=== PATIENT | female | born 1995 | race Two or more races ===

== ENCOUNTER → 2019-03-06 | Outpatient (CLI) | payer SELFPAY ==
--- NOTE | 2019-03-06 14:53 | RADIOLOGY REPORT (SQ) ---
EXAM DESCRIPTION: U/S OB 14+ TRNABD 1GES W/O DOP COMPLETED DATE/TIME: 03/06/2019 2:44 pm REASON FOR STUDY: Z34.82 ENCOUNTER FOR SUPRVSN OF NORMAL , SECOND TRIMESTER Z34.82 ENCOUNT ER FOR SUPRVSN OF NORMAL , SECOND TRI COMPARISON: None. TECHNIQUE: Static and Dynamic grayscale imaging performed of gravid uterus using transabdominal appr oach. Additional selected color Doppler and spectral images recorded. All stored on PACS. LIMITATIONS: None. FINDINGS: FETUSES SEEN:1 EGA: 28 weeks 0 days Calculated using BPD,FL,HC,AC documented on images. No discrepancy with clinica l dates. DEBBIE: 05/29/2019 EFW: 1111 g grams PERCENTILE: 61st percentile CRESENCIO: 18.1 cm PLACENTA: Anterior grade 1 PRESENTATION: Cephalic. ANATOMY: HEART RATE: 150 beats per minute. FOUR CHAMBER HEART: Visualized. THREE VESSEL CORD: Yes. CORD INSERTION: Visualized. KIDNEYS AND BLADDER: Visualized. Appear normal. STOMACH: Visualized. Appears normal. SPINE: Normal as visualized. BRAIN AND LATERAL VENTRICLES: Visualized. Appear normal. OTHER: No other significant finding. MATERNAL ADNEXA: Maternal ovaries not visualized. CERVICAL LENGTH: 2.3 cm Closed. OTHER: No other significant finding. IMPRESSION: LIVING INTRAUTERINE . ESTIMATED GESTATIONAL AGE 28 weeks 0 days NO VISUALIZED ANOMALIES. Trimester of : Third trimester - 28 weeks to delivery. TECHNICAL DOCUMENTATION: JOB ID: [id number] [employer]- All Rights Reserved Reading location - IP/workstation name: [email or web address]
== END ==
LOC: RAD 13:56
PROVIDERS: ATTEND Midwife
DX: Z34.83 Encounter for supervision of other normal pregnancy, third trimester (principal)
CPT/HCPCS: 76805

== ENCOUNTER 2019-04-05 23:00 | Outpatient (CLI) | payer SELFPAY ==
[2019-04-05 23:46] LABS: APPEARANCE,URINE CLEAR; BILIRUBIN,URINE NEGATIVE (NEGATIVE); COLOR,URINE STRAW; GLUCOSE, URINE NEGATIVE (NEGATIVE); KETONES,URINE NEGATIVE (NEGATIVE); LEUKOCYTE ESTERASE,URINE NEGATIVE (NEGATIVE); NITRITE,URINE NEGATIVE (NEGATIVE); PROTEIN,URINE NEGATIVE (NEGATIVE); URINE SPECIFIC GRAVITY 1.003; UROBILINOGEN,URINE NEGATIVE mg/dL (<2.0)
[2019-04-06 00:06] LABS: URINE BARBITURATES SCREEN NEGATIVE; URINE BENZODIAZEPINES SCREEN NEGATIVE; URINE COCAINE SCREEN NEGATIVE; URINE MARIJUANA (THC) SCREEN NEGATIVE; URINE METHADONE SCREEN NEGATIVE; URINE PHENCYCLIDINE SCREEN NEGATIVE
[2019-04-06 00:07] LABS: URINE AMPHETAMINES SCREEN NEGATIVE
[2019-04-06 00:12] LABS: BACTERIA (WET MOUNT) 3+ BACTERIA SEEN; EPITHELIALS (WET MOUNT) 3+ EPITHELIALS SEEN; RBCS (WET MOUNT) 2+ RBCS SEEN; T.VAGINALIS (WET MOUNT) NO TRICHOMONAS SEEN; WBCS (WET MOUNT) 1+ WBCS SEEN; YEAST (WET MOUNT) NO YEAST SEEN
[2019-04-06] MEDS ORDERED: ACETAMINOPHEN 325 MG TABLET ONE (00:28)
[2019-04-06] MEDS ORDERED: ONDANSETRON HCL 8 MG TABLET PO ONE (00:28)
[2019-04-06] MEDS ORDERED: ACETAMINOPHEN 325 MG TABLET PO ONE (00:28)
[2019-04-06] MEDS ORDERED: ONDANSETRON HCL 8 MG TABLET ONE (00:28)
--- NOTE | 2019-04-06 00:41 | RADIOLOGY REPORT (SQ) ---
EXAM DESCRIPTION: US LIMITED COMPLETED DATE/TME: 04/05/2019 23:42 CLINICAL HISTORY: 24 years Female, cervical length and cresencio . Leaking fluid. Contracted. COMPARISON: 03/06/2019 TECHNIQUE: Limited third trimester obstetrical ultrasound obtained portably sonographic parameters. FINDINGS: CRESENCIO: 13.7 cm Placenta: Anterior Cervical length: 3.0 cm and closed presentation: Vertex heart rate: 140 bpm. IMPRESSION: 1. Single live intrauterine with heart rate of 140 bpm.
--- NOTE | 2019-04-06 02:08 | Non Stress Test Report ---
Non Stress Test Datetime Report Generated by CPN: 04/06/2019 02:07 DEMOGRAPHIC Test Number: 1 EGA NST: 32.2 INDICATION Indication for Study: Ordered by Provider VITAL SIGNS Temperature - NST: 99.0 Pulse - NST: 88 RESP - NST: 16 NBPSYS NST: 117 NBPDIA NST: 68 MONITORING Monitor Explained: Monitor Explained; Test Explained; Patient Verbalized Understanding Time on Monitor: 04/06/2019 00:40 Time off Monitor: 04/06/2019 01:01 NST Duration: 21 NST INTERVENTIONS NST Interventions: PO Hydration Physician Notified NST: Younger BABY A: [id number] BABY A Movement : Present Contraction Frequency : ui FHR Baseline : 140 Accelerations : 15X15 Decelerations : None Variability : Moderate 6-25bpm NST Review: Meets Criteria for Reactive NST NST Review and Verified By : Carmen Arana RN NST Results: Reactive NST REPORT Report Trigger: Send Report
== END 2019-04-06 01:28 | disposition home or self-care (01) ==
LOC: LC 23:00
PROVIDERS: ATTEND Obstetrics & Gynecology
PROC: 4A1HXCZ Monitoring of Products of Conception, Cardiac Rate, External Approach (ICD-10-PCS; principal; 2019-04-05)
DX: O47.03 False labor before 37 completed weeks of gestation, third trimester (principal); O26.893 Other specified pregnancy related conditions, third trimester; R51 Headache; Z3A.32 32 weeks gestation of pregnancy
CPT/HCPCS: 59025; 87210; 81001; 87081; 80307; 84112; 76815; S0119

== ENCOUNTER 2019-05-28 14:57 | Outpatient (CLI) | payer SELFPAY ==
[2019-05-28 15:55] LABS: APPEARANCE,URINE CLEAR; BILIRUBIN,URINE NEGATIVE (NEGATIVE); COLOR,URINE STRAW; GLUCOSE, URINE NEGATIVE (NEGATIVE); KETONES,URINE NEGATIVE (NEGATIVE); LEUKOCYTE ESTERASE,URINE NEGATIVE (NEGATIVE); NITRITE,URINE NEGATIVE (NEGATIVE); PROTEIN,URINE NEGATIVE (NEGATIVE); URINE SPECIFIC GRAVITY 1.004; UROBILINOGEN,URINE NEGATIVE mg/dL (<2.0)
[2019-05-28 16:21] LABS: URINE AMPHETAMINES SCREEN NEGATIVE; URINE BARBITURATES SCREEN NEGATIVE; URINE BENZODIAZEPINES SCREEN NEGATIVE; URINE COCAINE SCREEN NEGATIVE; URINE MARIJUANA (THC) SCREEN NEGATIVE; URINE METHADONE SCREEN NEGATIVE; URINE PHENCYCLIDINE SCREEN NEGATIVE
[2019-05-28] MEDS ORDERED: ACETAMINOPHEN 325 MG TABLET PO ONE (18:11)
[2019-05-28] MEDS ORDERED: ACETAMINOPHEN 325 MG TABLET ONE (18:37)
[2019-05-28] MEDS ORDERED: OXYTOCIN 10 UNIT/ML VIAL ONE (21:14)
[2019-05-28] MEDS ORDERED: MISOPROSTOL 0.2 MG TABLET ONE (21:14)
[2019-05-28] MEDS ORDERED: OXYTOCIN/NORMAL SALINE 20 UNIT/1,000 ML RTUINJ ONE (21:15)
[2019-05-28] MEDS ORDERED: LIDOCAINE 1% INJ-PF (10 MG/ML) 30 ML SDV ONE (21:15)
--- NOTE | 2019-05-29 | Non Stress Test Report ---
Non Stress Test Datetime Report Generated by CPN: 05/29/2019 00:00 DEMOGRAPHIC EGA NST: 38.4 INDICATION Indication for Study: Other Indication for Study (NST) Other: LABOR CHECK MONITORING Monitor Explained: Monitor Explained; Test Explained; Patient Verbalized Understanding Time on Monitor: 05/28/2019 15:09 Time off Monitor: 05/28/2019 20:47 NST Duration: 338 NST INTERVENTIONS NST Interventions: PO Hydration; Reposition Patient Physician Notified NST: Dr. Aries BABY A: [id number] BABY A Movement : Present Contraction Frequency : irregular FHR Baseline : 135 Accelerations : 15X15 Decelerations : None Variability : Moderate 6-25bpm NST Review: Meets Criteria for Reactive NST NST Review and Verified By : Gregory Chase RN NST Results: Reactive NST REPORT Report Trigger: Send Report
== END 2019-05-28 20:45 | disposition home or self-care (01) ==
LOC: LC 14:57
PROVIDERS: ATTEND Obstetrics & Gynecology
PROC: 4A1HXCZ Monitoring of Products of Conception, Cardiac Rate, External Approach (ICD-10-PCS; principal; 2019-05-28)
DX: Z34.93 Encounter for supervision of normal pregnancy, unspecified, third trimester (principal)
CPT/HCPCS: 81005; 80307; 59025; J3490; J2590 ×2

== ENCOUNTER 2019-05-29 00:33 | Inpatient (IN) | payer SELFPAY ==
[2019-05-29] MEDS ORDERED: OXYTOCIN 10 UNIT/ML VIAL ONE (00:41)
[2019-05-29] MEDS ORDERED: MISOPROSTOL 0.2 MG TABLET ONE (00:41)
[2019-05-29] MEDS ORDERED: LIDOCAINE 1% INJ-PF (10 MG/ML) 30 ML SDV ONE (00:41)
[2019-05-29] MEDS ORDERED: PENICILLIN G-K 5 MILLION UNIT VIAL ONE (00:41)
[2019-05-29] MEDS ORDERED: OXYTOCIN/NORMAL SALINE 20 UNIT/1,000 ML RTUINJ ONE (00:41)
[2019-05-29] MEDS ORDERED: PENICILLIN G POTASSIUM 5,000,000 UNIT in DEXTROSE 5%-WATER 100 ML IV ONE (00:58)
[2019-05-29] MEDS ORDERED: RINGERS SOLUTION,LACTATED 1,000 ML IV ONE (00:58)
[2019-05-29 01:28] LABS: ABSOLUTE LYMPHOCYTES (AUTO) 2.4 10^3/uL (0.5-4.7); ABSOLUTE MONOCYTES (AUTO) 0.6 10^3/uL (0.1-1.4); ABSOLUTE NEUT (AUTO) 7.9 10^3/uL (1.7-8.2); BASOPHILS % (AUTO) 0.3 % (0-2); EOSINOPHILS % (AUTO) 0.4 % (0-6); HEMATOCRIT 32.6 % (36.0-47.0); HEMOGLOBIN 10.9 g/dL (12.0-15.5); LYMPHOCYTES % (AUTO) 21.8 % (13-45); MEAN CORPUSCULAR HEMOGLOBIN 28.7 pg (27.0-33.4); MEAN CORPUSCULAR HGB CONC 33.5 g/dL (32.0-36.0); MEAN CORPUSCULAR VOLUME 86 fl (80-97); PLATELET COUNT 230 10^3/uL (150-450); RED CELL DISTRIBUTION WIDTH 12.9 % (11.5-14.0); SEGMENTED NEUTROPHILS % (AUTO) 72.5 % (42-78); TOTAL CELLS COUNTED % (AUTO) 100 %
--- NOTE | 2019-05-29 02:01 | Admission Physical ---
Datetime Report Generated by CPN: 05/29/2019 02:01 CURRENT ADMISSION Chief Complaint: Uterine Contractions Indication for Induction: Not Applicable Admit Impression : Term, Intrauterine ; Active Labor Admit Plan: Admit to Unit; Initiate Labor Protocol ALLERGIES Medication Allergies: No Medication Allergies: No Known Allergies (05/28/2019) Latex: No Latex Allergies OBSTETRICAL HISTORY EDC: 06/07/2019 00:00 : 4 Para: 2 Term: 2 : 0 SAB: 1 IAB: 0 Livin Gestational Diabetes: No Rh Sensitization: No Incompetent Cervix: No DONOVAN: No Infertility: No ART Treatment: No Uterine Anomaly: No IUGR: No Hx Previous C/S: No Macrosomia: No Hx Loss/Stillborn: No PIH: No Hx : No Placenta Previa/Abruption: No Depression/PP Depression: No PTL/PROM: No Post Hemorrhage: No Current Procedures: Ultrasound Obstetrical History Comments: hx- loss @ 20 weeks, twin gestation SEE RECORDS Alcohol: No Marijuana : No Cocaine: No Other Illicit Drugs: No Cigarettes: Never Smoker. [id number] MEDICAL HISTORY Diabetes: No Blood Transfusion: No Pulmonary Disease (Asthma, TB): No Breast Disease: No Hypertension: Yes Genetic Coordinator Surgery: No Heart Disease: No Hosp/Surgery: Yes Autoimmune Disorder: No Anesthetic Complications: No Kidney Disease: No Abnormal Pap Smear: No Neuro/Epilepsy: No Psychiatric Disorders: No Other Medical Diseases: No Hepatitis/Liver Disease: No Significant Family History: No Varicosities/Phlebitis: No Trauma/Violence : No Thyroid Dysfunction: No INFECTIOUS HISTORY Gonorrhea: No Genital Herpes: No Chlamydia: No Tuberculosis: No Syphilis: No Hepatitis: No HIV/AIDS Exposure: No Rash or Viral Illness: No HPV: No PHYSICAL EXAM General: Normal HEENT: Normal Neurologic: Normal Thyroid: Normal Heart: Normal Lungs: Normal Breast: Normal Back: Normal Abdomen: Normal Genitourinary Exam: Normal Extremities: Normal DTRs: Normal Pelvic Type: Adequate Vital Signs: Reviewed VAGINAL EXAM Dilatation: 6 Effacement: 100 Station: -1 MEMBRANES Pooling: Negative Membranes: Intact FETUS A EGA: 38.5 Monitoring: External US FHR- Baseline: 130 Variability: Moderate 6-25bpm Accelerations: 15X15 Decelerations: None FHR Category: Category I Estimated Weight (gm): 3400 Presentation: Vertex PLANS FOR LABOR AND DELIVERY Labor and Delivery: None Pain Management: None Feeding Preference: Both Benefit of Breast Feed Discussed: Yes Circumcision: N/A INFORMED CONSENT Signature: with User ID: [email or web address]
[2019-05-29] MEDS ORDERED: BENZOCAINE/MENTHOL AEROSOL SPRAY 56 ML TOP PRN (02:04)
[2019-05-29] MEDS ORDERED: DIPHENHYDRAMINE HCL 25 MG CAPSULE PO PRN (02:04)
[2019-05-29] MEDS ORDERED: ACETAMINOPHEN 650 MG SUPP.RECT PR PRN (02:04)
[2019-05-29] MEDS ORDERED: MAGNESIUM HYDROXIDE SUSP 30 ML UDCUP PO PRN (02:04)
[2019-05-29] MEDS ORDERED: DIBUCAINE 1% OINTMENT 56 GM TP PRN (02:04)
[2019-05-29] MEDS ORDERED: PROMETHAZINE HCL 25 MG TABLET PO PRN (02:04)
[2019-05-29] MEDS ORDERED: PROMETHAZINE HCL 25 MG SUPP.RECT PR PRN (02:04)
[2019-05-29] MEDS ORDERED: ACETAMINOPHEN WITH CODEINE #3 TABLET PO PRN (02:04)
[2019-05-29] MEDS ORDERED: PSEUDOEPHEDRINE HCL 30 MG TABLET PO PRN (02:04)
[2019-05-29] MEDS ORDERED: MEASLES,MUMPS&RUBELLA VACC/PF 0.5 ML VIAL SUBCUT PRN (02:04)
[2019-05-29] MEDS ORDERED: DIPH/PERTUSS(ACELL)/TETANUS VAC/PF 0.5 ML SYR (>=10YO) IM PRN (02:04)
[2019-05-29] MEDS ORDERED: GLYCERIN/WITCH HAZEL LEAF 1 EACH MED..WIPE TP PRN (02:04)
[2019-05-29] MEDS ORDERED: ZOLPIDEM TARTRATE 5 MG TABLET PO PRN (02:04)
[2019-05-29] MEDS ORDERED: OXYTOCIN/NORMAL SALINE 1,000 ML IV PRN (02:04)
[2019-05-29] MEDS ORDERED: PROMETHAZINE HCL INJ 25 MG/1 ML VIAL IV PRN (02:04)
[2019-05-29] MEDS ORDERED: NA PHOS,M-B/NA PHOS,DI-BA (ADULT) 133 ML ENEMA PR PRN (02:04)
--- NOTE | 2019-05-29 03:08 | Delivery Summary ---
Del Sum A-C Datetime Report Generated by CPN: 05/29/2019 03:08 DELIVERY PERSONNEL DELIVERY PERSONNEL: [id number] Delivery Doctor:: Rosa Chris MD Labor and Delivery Nurse:: Destiny Kat RNserger Nurse:: Leigh Pace RN Nursery Nurse:: Shilpa Zhao RN Senior Manager Asset Protection/[employer] ATTENDANT: Kate Lewis, ST MATERNAL INFORMATION Delivery Anesthesia: None Medications After Delivery: Pitocin Drip 20 Units/1000ml NSS Estimated Blood Loss (ml): 200 Delivery QBL: 200 Maternal Complications: Precipitous Labor (<3hrs) LABOR SUMMARY EDC: 06/07/2019 00:00 No. Babies in Womb: 1 Attempted: No Labor Anesthesia: None LABOR INFORMATION Reason for Induction: Not Applicable Onset of Labor: 05/29/2019 00:52 Complete Dilatation: 05/29/2019 01:46 Other Ripening Agents: none Oxytocin: N/A Group B Beta Strep: positive Antibiotics # of Doses: 1 Antibiotics Time of Last Dose: 0107 Name of Antibiotic Given: Penicillin Steroids Given: None Reason Steroids Not Administered: Not Applicable MEMBRANES Membranes Rupture Method: Artificial Rupture of Membranes: 05/29/2019 01:46 Length of Rupture (hr): 0.08 Amniotic Fluid Color: Moderate Meconium Amniotic Fluid Amount: Small Amniotic Fluid Odor: Normal STAGES OF LABOR Stage 1 hr: 0 Stage 1 min: 54 Stage 2 hr: 0 Stage 2 min: 5 Stage 3 hr: 0 Stage 3 min: 4 Total Time in Labor hr: 1 Total Time in Labor min: 3 VAGINAL DELIVERY Episiotomy: None Laceration #1: None Laceration Extension #1: N/A Laceration Repair: Not Applicable Sponge Count Correct: N/A Sharps Count Correct: N/A CSECTION DELIVERY Primary Indication: N/A Secondary Indication: N/A CSection Incidence: N/A Labor: N/A Elective: N/A CSection Incision: N/A BABY A INFORMATION Delivery Date/Time: 05/29/2019 01:51 Method of Delivery: Vaginal Born in Route : No : N/A Forceps: N/A Vacuum Extraction: N/A Shoulder Dystocia : No PRESENTATION/POSITION BABY A Presentation: Cephalic Cephalic Presentation: Vertex Vertex Position: Left Occipital Anterior Breech Presentation: N/A PLACENTA INFORMATION BABY A Placenta Delivery Time : 05/29/2019 01:55 Placenta Method of Delivery: Spontaneous Placenta Status: Delivered SCORES BABY A Heart Rate 1 min: >100 bpm Resp Effort 1 min: Good Cry Reflex Irritability 1 min: Cough or Sneeze or Pulls Away Muscle Tone 1 min: Active Motion Color 1 min: Body [place], Extremities Blue Resuscitation Effort 1 min: Tactile Stimulation SCORE 1 MIN: 9 Heart Rate 5 min: >100 bpm Resp Effort 5 min: Good Cry Reflex Irritability 5 min: Cough or Sneeze or Pulls Away Muscle Tone 5 min: Active Motion Color 5 min: Body [place], Extremities Blue SCORE 5 MIN: 9 INFORMATION BABY A Gestational Age at Delivery: 38.5 Gestational Status: Early Term- 37- 38.6 Weeks Infant Outcome : Liveborn Condition : Stable Infant Sex: Male IDENTIFICATION BABY A Verification Date/Time: 05/29/2019 02:04 ID Band Number: [id number] Mother's Name Verified: Yes Infant RN Verifying : RemediosETHAN Additional Verifying Personnel: ETHAN Mcintosh WEIGHT/LENGTH BABY A Infant Birthweight (gm): 3217 Weight (lb): 7 Weight (oz): 1 Infant Length (in): 19.75 Infant Length (cm): 50.17 CORD INFORMATION BABY A No. Cord Vessels: 3 Nuchal Cord : Around Neck x2, Loose Cord Blood Taken: Yes-For Eval (Mom's Blood Type - or O+) Suction: Mouth ASSESSMENT BABY A Skin to Skin: Yes BABY B INFORMATION : N/A SIGNATURES Signature: with User ID: [email or web address]
[2019-05-29] MEDS ORDERED: IBUPROFEN 800 MG TABLET ONE (03:09)
[2019-05-29] MEDS ORDERED: PENICILLIN G POTASSIUM 2,500,000 UNIT in DEXTROSE 5%-WATER 50 ML IV SCH (04:59)
[2019-05-29] MEDS ORDERED: ACETAMINOPHEN WITH CODEINE #3 TABLET ONE (07:34)
[2019-05-29] MEDS: ACETAMINOPHEN WITH CODEINE #3 TABLET PO PRN ×2 (07:37→18:06)
[2019-05-29] MEDS: IBUPROFEN 800 MG TABLET PO SCH ×3 (08:53→21:45)
[2019-05-29] MEDS: DOCUSATE SODIUM 100 MG CAPSULE PO SCH ×2 (10:07→18:06)
[2019-05-29] MEDS: FERROUS SULFATE 325 MG TABLET PO SCH ×2 (10:07→18:06)
[2019-05-29] MEDS: PRENATAL VITAMIN W DHA CAPSULE PO SCH (10:07)
[2019-05-29] MEDS: FAMOTIDINE 20 MG TABLET PO SCH ×2 (10:08→21:45)
[2019-05-29] MEDS: SENNOSIDES/DOCUSATE 8.6-50 MG 1 EACH TABLET PO SCH (10:08)
--- NOTE | 2019-05-29 11:31 | PDOC PROGRESS REPORT ---
Subjective-OB Progress Note for:: 05/29/19 Subjective: 24yo s/p delivery day. Pt ambulating and voiding without difficulty. Reports pain well controlled with medication, no concerns at this time. Physical Exam (OB) Vital Signs: Temp Pulse Resp BP Pulse Ox 97.5 F 77 14 114/59 L 100 05/29/19 08:18 05/29/19 08:18 05/29/19 08:18 05/29/19 08:18 05/29/19 08:18 - General General Appearance: Appears well In distress: None - Episiotomy/Laceration Site Condition: N/A - Lochia Lochia Amount: Small 10-25 ml Lochia Color: Rubra/Red - Abdomen Description: Soft Hernia Present: No Fundal Description: Firm, Midline Fundal Height: u/u - u/2 - Respiratory Respiratory Status: No respiratory distress - Extremities Upper extremity: Normal inspection Lower extremities: Normal inspection - Neurological Cognition: Normal Orientation: AAOx4 - Psychological Associated symptoms: Normal affect, Normal mood Objective-Diagnostic Laboratory: 05/29/19 01:13 05/29/19 05/29/19 01:13 01:13 WBC 11.0 H RBC 3.80 Hgb 10.9 L Hct 32.6 L MCV 86 MCH 28.7 MCHC 33.5 RDW 12.9 Plt Count 230 Seg Neutrophils % 72.5 Lymphocytes % 21.8 Monocytes % 5.0 Eosinophils % 0.4 Basophils % 0.3 Absolute Neutrophils 7.9 Absolute Lymphocytes 2.4 Absolute Monocytes 0.6 Absolute Eosinophils 0.0 Absolute Basophils 0.0 Blood Type O POSITIVE Antibody Screen NEGATIVE Assessment and Plan(PN) - Assessment and Plan (1) Delivery normal Is this a current diagnosis for this admission?: Yes Plan: routine pp care (2) Anemia complicating , third trimester Is this a current diagnosis for this admission?: Yes Plan: increase dietary iron and FeSO4 BID - Time Spent with Patient Time with patient: Less than 15 minutes Medications reviewed and adjusted accordingly: Yes - Disposition Anticipated Discharge: Home Within: within 48 hours
[2019-05-30] MEDS: IBUPROFEN 800 MG TABLET PO SCH ×2 (05:28→22:20)
[2019-05-30 07:45] LABS: HEMATOCRIT 31.5 % (36.0-47.0); HEMOGLOBIN 10.6 g/dL (12.0-15.5); MEAN CORPUSCULAR HEMOGLOBIN 29.1 pg (27.0-33.4); MEAN CORPUSCULAR HGB CONC 33.7 g/dL (32.0-36.0); MEAN CORPUSCULAR VOLUME 87 fl (80-97); PLATELET COUNT 214 10^3/uL (150-450); RED BLOOD COUNT 3.64 10^6/uL (3.72-5.28); RED CELL DISTRIBUTION WIDTH 13.3 % (11.5-14.0); WHITE BLOOD COUNT 12.5 10^3/uL (4.0-10.5)
--- NOTE | 2019-05-30 10:13 | PDOC PROGRESS REPORT ---
Subjective-OB Progress Note for:: 05/30/19 - PP Day #1, doing well, breast and bottlefeeding, O+, Rubella Immune Physical Exam (OB) Vital Signs: Temp Pulse Resp BP Pulse Ox 97.6 F 75 17 114/67 98 05/30/19 07:18 05/30/19 07:18 05/30/19 07:18 05/30/19 07:18 05/30/19 07:18 - General General Appearance: Appears well, Alert - PIH/Pre-Eclampsia DTR's: 1 + Clonus: Negative Headache: Absent Epigastric Pain: No Visual Changes: No - Lochia Lochia Amount: Scant < 10 ml Lochia Color: Rubra/Red - Abdomen Description: Soft, Round Hernia Present: No Fundal Description: Firm, Midline Fundal Height: u/u - u/2 - Respiratory Respiratory Status: No respiratory distress - Abdominal Inspection: Normal Distension: No distension - Genitourinary Genitourinary Note: voiding - Extremities Upper extremity: Normal inspection Lower extremities: Normal inspection - Neurological Cognition: Normal Orientation: AAOx4 - Psychological Associated symptoms: Normal affect, Normal mood - Skin Skin Temperature: Warm Skin Moisture: Dry Objective-Diagnostic Laboratory: 05/30/19 07:25 05/30/19 07:25 WBC 12.5 H RBC 3.64 L Hgb 10.6 L Hct 31.5 L MCV 87 MCH 29.1 MCHC 33.7 RDW 13.3 Plt Count 214 Assessment and Plan(PN) - Assessment and Plan (1) Normal course Is this a current diagnosis for this admission?: Yes (2) Anemia complicating , third trimester Is this a current diagnosis for this admission?: Yes (3) Delivery normal Is this a current diagnosis for this admission?: Yes - Time Spent with Patient Time with patient: Less than 15 minutes Medications reviewed and adjusted accordingly: Yes - Disposition Anticipated Discharge: Home Within: within 24 hours
[2019-05-30] MEDS: DOCUSATE SODIUM 100 MG CAPSULE PO SCH (10:16)
[2019-05-30] MEDS: PRENATAL VITAMIN W DHA CAPSULE PO SCH (10:16)
[2019-05-30] MEDS: SENNOSIDES/DOCUSATE 8.6-50 MG 1 EACH TABLET PO SCH (10:16)
[2019-05-30] MEDS: FERROUS SULFATE 325 MG TABLET PO SCH (10:16)
[2019-05-30] MEDS: FAMOTIDINE 20 MG TABLET PO SCH ×2 (10:16→22:20)
[2019-05-30 20:45] VITALS: BP 108/68
[2019-05-31] MEDS: IBUPROFEN 800 MG TABLET PO SCH ×2 (06:21→13:31)
[2019-05-31] MEDS: PRENATAL VITAMIN W DHA CAPSULE PO SCH (09:58)
[2019-05-31] MEDS: FERROUS SULFATE 325 MG TABLET PO SCH ×2 (09:58→13:32)
[2019-05-31] MEDS: FAMOTIDINE 20 MG TABLET PO SCH (09:58)
[2019-05-31] MEDS: SENNOSIDES/DOCUSATE 8.6-50 MG 1 EACH TABLET PO SCH (09:58)
[2019-05-31] MEDS: DOCUSATE SODIUM 100 MG CAPSULE PO SCH ×2 (09:59→13:32)
--- NOTE | 2019-05-31 11:22 | PDOC DISCHARGE SUMMARY ---
Final Diagnosis Discharge Date: 05/31/19 - Final Diagnosis (1) Anemia complicating , third trimester Is this a current diagnosis for this admission?: Yes (2) Delivery normal Is this a current diagnosis for this admission?: Yes (3) Normal course Is this a current diagnosis for this admission?: Yes Discharge Data - Discharge Medication Home Medications: 95/Iron Fum/Folic/Dha [ + Dha Combo Pack] 1 cap PO DAILY 05/28/19 Reason(s) for Admission: Onset of Labor Procedures: NST Intrapartum Procedure(s): Spontaneous Vaginal Delivery - Diagnosis Test Laboratory: Temp Pulse Resp BP Pulse Ox 98.5 F 68 18 108/68 100 05/30/19 20:43 05/30/19 20:43 05/30/19 20:43 05/30/19 20:43 05/30/19 20:43 05/29/19 05/30/19 01:13 07:25 RBC 3.80 3.64 L Hgb 10.9 L 10.6 L Hct 32.6 L 31.5 L - Discharge information/Instructions Discharge Activity: Balance Activity w/Rest, Pelvic Rest, No tub bath Discharge Diet: Regular Disposition: HOME, SELF-CARE [facility]
== END 2019-05-31 14:50 | disposition home or self-care (01) | DRG 807 ==
LOC: LC 00:33 → LR 01:00 → 2S 08:10
PROVIDERS: ADMIT Obstetrics & Gynecology; ATTEND Obstetrics & Gynecology
PROC: 10E0XZZ Delivery of Products of Conception, External Approach (ICD-10-PCS; principal; 2019-05-29)
PROC: 10907ZC Drainage of Amniotic Fluid, Therapeutic from Products of Conception, Via Natural or Artificial Opening (ICD-10-PCS; 2019-05-29)
PROC: 4A1HX4Z Monitoring of Products of Conception, Cardiac Electrical Activity, External Approach (ICD-10-PCS; 2019-05-29)
DX: O62.3 Precipitate labor (principal); Z37.0 Single live birth; O99.824 Streptococcus B carrier state complicating childbirth; O77.0 Labor and delivery complicated by meconium in amniotic fluid; O99.013 Anemia complicating pregnancy, third trimester; Z3A.38 38 weeks gestation of pregnancy; O69.81X0 Labor and delivery complicated by cord around neck, without compression, not applicable or unspecified
CPT/HCPCS: 36415; 85025; 85027; 86592; 86850; 86900; 86901; J2540; J2590; J3490; J7060